=== PATIENT | female | born 1995 | race Caucasian/White ===

== ENCOUNTER 2019-12-18 17:01 | Emergency (ER) | payer OTHER ==
[~2019-12-18] VITALS: Ht 157.5 cm; Wt 63.5 kg
[2019-12-18] MEDS ORDERED: SODIUM CHLORIDE 0.9% 1000ML 1,000 ML IV STA (17:34)
[2019-12-18] MEDS ORDERED: PENICILLIN G POTASSIUM 5,000,000 UNIT in SODIUM CHLORIDE 0.9% 100 ML IV STA (17:34)
[2019-12-18] MEDS ORDERED: SODIUM CHLORIDE 0.9% 1000ML 2,000 ML ONE (17:42)
--- NOTE | 2019-12-18 17:45 | NUR ---
given and tx to baby warmer
[2019-12-18] MEDS ORDERED: LIDOCAINE HCL 1% LOCAL INJ 20 ML VIAL ONE (17:46)
[2019-12-18] MEDS ORDERED: HYDROMORPHONE 1MG/1ML INJ ONE (17:51)
--- NOTE | 2019-12-18 17:55 | NUR ---
1mg of dilaudid given
--- NOTE | 2019-12-18 18:06 | NUR ---
baby's heart beat--149, oxygen sats--100%
[2019-12-18] MEDS ORDERED: SODIUM CHLORIDE 0.9% IV ONE (19:45)
[2019-12-18] MEDS ORDERED: OXYTOCIN IV ONE (19:45)
--- NOTE | 2019-12-19 01:01 | Operative Report ---
DATE OF PROCEDURE: 12/18/2019 SURGEON: Alma Swenson MD [employer]IOR [employer]ER PLANNER: None. PREOPERATIVE DIAGNOSES: 1. Intrauterine at 38 weeks and 2 days gestation. 2. Precipitous labor. POSTOPERATIVE DIAGNOSES: 1. Intrauterine at 38 weeks and 2 days gestation. 2. Precipitous labor. PROCEDURE PERFORMED: Spontaneous vaginal delivery. ANESTHESIA: None. ESTIMATED BLOOD LOSS: 450 mL. COMPLICATIONS: None. FINDINGS: A male infant in cephalic presentation with Apgars of seven and nine and weight of 6 pounds 10 ounces. SPECIMENS: Placenta. INDICATIONS: The patient is a 24-year-old 2, para 1-0-0-1 at 38 weeks and 2 days gestation who presented to the emergency department in active 2nd stage of labor and proceeded to have a precipitous vaginal delivery. PROCEDURE NOTE: The patient was noted to be complete and pushing. She was placed in dorsal lithotomy position. She was asked to push and was struggling with delivery. A right medial and lateral episiotomy was performed and the head then delivered spontaneously in the left occiput anterior position. A nuchal cord was checked and one was noted and relieved at the perineum. The anterior shoulder delivered easily and the posterior shoulder followed. The remainder of the was easily delivered and placed on the table, where he was bulb suctioned. The umbilical cord was clamped and cut and cord blood was collected. The was resuscitated and handed to the awaiting emergency room physician. The placenta was then delivered spontaneously and was intact with a three-vessel cord noted. The examination of the cervix and vaginal vault did not reveal any additional lacerations and no extension of the episiotomy. The episiotomy was then repaired with 2-0 Vicryl in typical fashion. Alma Swenson MD MEF/MODL /[id number]
--- NOTE | 2019-12-19 02:12 | History and Physical ---
CHIEF COMPLAINT: Labor. HISTORY OF PRESENT ILLNESS: The patient is a 24-year-old 2, para 1-0-0-1 at 38 weeks and 2 days gestation, who presents to the emergency department secondary to active labor. She began feeling contractions approximately 4 hours ago. No leakage of fluid and minimal vaginal bleeding. She reports good movement. care was uncomplicated. OBSTETRICAL HISTORY: One prior vacuum-assisted vaginal delivery. PAST MEDICAL HISTORY: Mitral valve prolapse. PAST SURGICAL HISTORY: Breast augmentation. SOCIAL HISTORY: No smoking, drinking, or drug use. FAMILY HISTORY: Denies. ALLERGIES: NO KNOWN DRUG ALLERGIES. REVIEW OF SYSTEMS: A 10-point review of systems was reviewed and was negative other than as documented in the HPI. CURRENT MEDICATIONS: Include vitamins. PHYSICAL EXAMINATION: VITAL SIGNS: As per emergency department records. GENERAL: She is alert and in acute distress, being actively in the 2nd stage of labor. SKIN: Warm. HEAD: Normocephalic. CARDIOVASCULAR: Tachycardic. RESPIRATORY: Nonlabored respirations. GASTROINTESTINAL: Soft and nontender. GENITOURINARY: On bimanual exam, she was noted to be fully dilated with a bulging bag of membranes, which spontaneously ruptured during examination. NEUROLOGICAL: The patient was alert and oriented. LABORATORY DATA: No laboratory studies performed during this hospitalization. Of note, her care included group B Streptococcus positive. IMPRESSION AND PLAN: This is a 24-year-old 2, para 1-0-0-1 at 38 weeks and 2 days gestation, who presented to the emergency room in active 2nd stage of labor and proceeded to have a precipitous vaginal delivery. Please see delivery note for further information. The patient is to be transferred to [facility] as no Labor and Delivery Services are available at this hospital. MD FLO Abad/MODEnder /[id number]
== END 2019-12-18 18:50 | disposition other institution (70) ==
LOC: EDBD 17:01 → ER 17:01
DX: O60.23X0 Term delivery with preterm labor, third trimester, not applicable or unspecified (principal)
CPT/HCPCS: 59409; 59414; 88307; 99284; J1170; J2001; J2540; J2590; J7030; J7040; J7050